=== PATIENT | female | born 1965 | race Caucasian/White ===

== ENCOUNTER 2020-03-17 09:16 | Outpatient (CLI) | payer SELFPAY ==
--- NOTE | 2020-03-17 | MR_ITS ---
WS: [id number] MRI BRAIN WITHOUT CONTRAST HISTORY: WEAKNESS, GAIT ABNORMALITY , CONFUSION COMPARISON: 09/26/2010 TECHNIQUE: Diffusion imaging, multiplanar T1, T2 and FLAIR imaging obtained. No evidence for acute infarct or hemorrhage. Lewis-white matter differentiation is normal. There is a remote infarct with gliosis centered in the posterior LEFT lopez radiata involving the fr ontoparietal junction. Not significantly changed since 2009. There is a new focal area of minimal milka rovascular ischemic change in the RIGHT centrum semiovale ovale. Very mild cerebral atrophy. Atrophy is most significant around the frontal lobes and similar to 2013. No prior hemorrhage. Ventricles and extra-axial spaces are normal. No inferior displacement of cerebellar tonsils. The sella turcica and pituitary gland are unremarkabl e. Posterior fossa is also unremarkable. Dural venous sinuses and [place] demonstrate no abnormality on this unenhanced studies. Paranasal sinuses: Severe diffuse sinus disease. There is a mixture of T2 and T1 signal abnormalities within the sinuses on the T2 sequences. Variable signal intensity especially within the maxillary si nuses. No expansion of the sinus cavities. Mastoid air cells: Normal. Calvarium and scalp: Intact. MR/MR head wo con* [id number] IMPRESSION: 1. No acute infarct or mass. 2. 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 3. Severe diffuse pansinusitis. New since the prior study from 2009.
== END 2020-03-17 09:17 | disposition home or self-care (01) ==
LOC: RADSHAW 09:20
PROVIDERS: PCP Nurse Practitioner Family; Visit Provider Nurse Practitioner Family
DX: R53.1 Weakness (principal); R26.9 Unspecified abnormalities of gait and mobility; R41.0 Disorientation, unspecified; J32.4 Chronic pansinusitis
CPT/HCPCS: 70551

== ENCOUNTER 2020-03-30 13:30 | Outpatient (RCR) | payer SELFPAY | END 2020-04-18 23:59 | disposition home or self-care (01) | LOC: SPT 13:30 | PROVIDERS: PCP Nurse Practitioner Family; Visit Provider Internal Medicine | DX: R53.1 Weakness (principal); R26.9 Unspecified abnormalities of gait and mobility; Z86.79 Personal history of other diseases of the circulatory system | CPT/HCPCS: 97110; 97112; 97116; 97161 ==

== ENCOUNTER → 2020-04-17 11:29 | Outpatient (BNVA) | payer SELFPAY | PROVIDERS: PCP Nurse Practitioner Family; Referring Provider Nurse Practitioner Family; Visit Provider Specialist | DX: G30.9 Alzheimer's disease, unspecified (principal); F02.80 Dementia in other diseases classified elsewhere, unspecified severity, without behavioral disturbance, psychotic disturbance, mood disturbance, and anxiety; I77.3 Arterial fibromuscular dysplasia; R53.1 Weakness | CPT/HCPCS: 96116; 99204 ==

== ENCOUNTER 2020-04-19 06:00 | Outpatient (RCR) | payer SELFPAY | END 2020-05-19 23:59 | disposition home or self-care (01) | LOC: SPT 06:00 | PROVIDERS: PCP Nurse Practitioner Family; Visit Provider Internal Medicine | DX: R53.1 Weakness (principal); R26.9 Unspecified abnormalities of gait and mobility; Z86.79 Personal history of other diseases of the circulatory system | CPT/HCPCS: 97110; 97112; 97116 ==

== ENCOUNTER 2020-04-24 08:22 | Outpatient (CLI) | payer SELFPAY ==
--- NOTE | 2020-04-24 08:38 | CT_ITS ---
WS: [id number] CT ANGIOGRAM CEREBRAL AND CAROTID ARTERIES CT BRAIN, WITH AND WITHOUT CONTRAST HISTORY: Multiple cerebral aneurysms TECHNIQUE: CT the brain performed first with and without contrast. CT angiogram is performed of the c arotid and cerebral arteries. During arterial injection imaging is obtained from the skull vertex to the aortic arch in 1.25 mm imaging. Coronal and sagittal reformats are submitted. Additional multi pl kaur reformats of the carotid and cerebral arteries are submitted, MIP imaging also reviewed. NASCET criteria utilized. All CT scans at [facility] use at least one of these dose optimization techniques: automated exposure control; mA and/or kV adjustment per patient size (includes targeted exams where dose is matched to clinical indication); or iterative reconstruction. CONTRAST: Omnipaque 350; 95 mL IV. DLP: 2285.66 mGy.cm COMPARISON: 04/11/2014, 07/14/2013, 03/17/2020 and 09/26/2010 No acute intracranial hemorrhage. Mild to moderate cerebral atrophy, greatest involving the frontal a nd temporal lobes. Remote lacunar infarct external capsule and insular ribbon on the RIGHT and LEFT c entrum semiovale ovale. No mass effect or hemorrhage. Ventricles are normal size. On the postcontrast images there are no enhancing masses. Carotid Angiogram: Right carotid: Common carotid artery: Arises normally from the innominate artery. No significant plaque or stenosis. Internal carotid artery: No plaque or stenosis. External carotid artery: Patent. Left carotid: Common carotid artery: Arises normally from the aorta. No significant plaque or stenosis. Internal carotid artery: No plaque or stenosis. External carotid artery: Patent. Right vertebral artery: Unremarkable. Left vertebral artery: Unremarkable. Arises normally from the subclavian artery. Subclavian arteries: No stenosis or significant abnormality. Upper thorax: Normal. Thyroid gland: 13 mm mixed nodule inferior LEFT thyroid. Osseous structures: Unremarkable. CEREBRAL ANGIOGRAM: Intracranial vertebral arteries: Normal with no significant atherosclerosis. Basilar artery: No significant stenosis or occlusion. No aneurysm. Intracranial Internal carotid arteries: There is a slightly beaded appearance of the intracranial car otid arteries which may represent fibromuscular dysplasia. Again noted are the distal, intracranial L EFT carotid artery saccular aneurysms. Most proximal aneurysm measures 5 mm and extends medially. Jus t distally there is an additional saccular type aneurysm extending medially by 7 mm. These are stable in size since 2009. No new aneurysms or progression. Mild atherosclerosis of the intracranial caroti d arteries. Middle cerebral arteries: Slightly beaded appearance of the middle cerebral arteries. No aneurysms. Anterior cerebral arteries and ACOM: Normal. Posterior cerebral arteries and PCOM's: Normal. There is a filling defect with a large, dominant RIGHT sigmoid sinus. Partial thrombosis suspected. M ay also be due to slow flow in the large sigmoid sinus. Mastoid air cells: Normal. Paranasal sinuses: Mucoperiosteal thickening in the maxillary, ethmoid, sphenoid and frontal sinuses. There is significant opacification of all sinus cavities. Significant progression since 07/14/2013. Calvarium: Normal. Cervical chain lymph nodes are numerous and top normal size. The largest on the RIGHT at the jugulodi gastric region is 9.7 mm in diameter with a normal fatty hilum. CT/CT angio headneck* [id number] IMPRESSION: 1. No significant extracranial carotid artery stenosis. 2. 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 3. 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 No interval change . 4. Diffuse pansinusitis with significant progression since 2012. Described on a prior MRI of 03/17/2020 5. Filling defect in the RIGHT sigmoid sinus. Partial venous thrombosis or stalin ling defect due to incomplete filling and slow flow.
--- NOTE | 2020-04-24 08:39 | USCV_ITS ---
Minoo Latham Age: 54 Gender: F : 1965 Exam Date: 04/24/2020 09:37 Ordering Phys: Sharri Beck MD Technologist: Susan Buchanan [place] [facility] [place]ication: cva Risk Factors: Previous Vascular Surgery: Right Brachial BP: / Left Brachial BP: / Right Left Velocity (cm/s) Spectral Plaque Velocity (cm/s) Spectral Plaque Syst/Diast Broadening Syst/Diast Broadening 72.80/ 24.30 Prox CCA 65.10 / 23.20 71.70/ 24.30 Mid CCA 72.80 / 29.80 48.50/ 16.50 Distal CCA 71.70 / 26.50 55.20/ 33.30 Prox ICA 27.70 / 6.30 78.00/ 38.50 Mid ICA 58.30 / 25.10 80.60/ 42.50 Distal ICA 45.60 / 26.00 69.20 ECA 67.50 1.12 ICA/CCA 0.80 Antegrade Vertebral Antegrade 37.40/ 14.40 cm/s 39.90/ 16.40 cm/s Tri Subclavian Tri 71.70 90.60 FINDINGS Comparison:. 07/14/13. No significant elevation of systolic or diastolic velocities. Minimal bilateral, intimal thickening with no elevation of velocity. Bilateral antegrade vertebral arteries. CONCLUSIONS No interval change in stenosis since prior exam. Bilateral ICA stenosis less than 50%. Dr. Amrita Mitchell DO (Electronically Signed) Final Date: 24 April 2020 10:28 S
== END 2020-04-24 08:23 | disposition home or self-care (01) ==
LOC: RAD 08:22
PROVIDERS: PCP Nurse Practitioner Family; Visit Provider Specialist
DX: I63.9 Cerebral infarction, unspecified (principal); I65.23 Occlusion and stenosis of bilateral carotid arteries; I67.1 Cerebral aneurysm, nonruptured; J32.4 Chronic pansinusitis
CPT/HCPCS: 70496; 70498; 93880; Q9967

== ENCOUNTER 2020-05-20 06:00 | Outpatient (RCR) | payer SELFPAY | END 2020-06-13 23:00 | disposition home or self-care (01) | LOC: SPT 06:00 | PROVIDERS: PCP Nurse Practitioner Family; Visit Provider Internal Medicine | DX: I69.959 Hemiplegia and hemiparesis following unspecified cerebrovascular disease affecting unspecified side (principal); R26.9 Unspecified abnormalities of gait and mobility | CPT/HCPCS: 97110; 97112; 97116 ==

== ENCOUNTER 2021-03-05 09:36 | Outpatient (CLI) | payer SELFPAY ==
--- NOTE | 2021-03-05 09:40 | MM_ITS ---
WS: [id number] BILATERAL SCREENING DIGITAL MAMMOGRAM WITH CAD HISTORY: SCREENING COMPARISON: 03/31/2019 Bilateral CC and MLO views submitted. Computer aided detection analyzed. Breast composition: There are scattered areas of fibroglandular density. No suspicious masses, microc alcifications or architectural distortion. Stable calcifications and LEFT breast nodules. MM/[place] [id number] IMPRESSION: BI-RADS: 2-Benign FOLLOW UP: 1 Year Follow-up
== END 2021-03-05 09:37 | disposition home or self-care (01) ==
LOC: RADSHAW 09:40
PROVIDERS: PCP Nurse Practitioner Family; Visit Provider Nurse Practitioner Family
DX: Z12.31 Encounter for screening mammogram for malignant neoplasm of breast (principal)
CPT/HCPCS: 77067

== ENCOUNTER 2022-12-12 13:09 | Outpatient (CLI) | payer OTHER, SELFPAY ==
--- NOTE | 2022-12-12 13:15 | MM_ITS ---
WS: [id number] BILATERAL 2D DIGITAL SCREENING MAMMOGRAPHY WITH CAD CLINICAL INFORMATION: SCREENING HISTORY: Screening mammogram. No current complaints. COMPARISON: 2020 TECHNIQUE: Bilateral CC and MLO views. FINDINGS: Patient returned for repeat mammogram after initial screening mammogram demonstrated increa sed new skin calcifications bilaterally. Scattered fibroglandular densities bilaterally. Stable intramammary lymph node upper outer LEFT breas t. Stable tiny punctate calcifications. New progressed skin calcifications are seen today with associ ated markers. Diffuse new punctate calcifications bilaterally in the inferior medial breasts mostly r esolved with repeat imaging and cleaning of the breasts. No new suspicious calcifications. MM/[id number] IMPRESSION: BI-RADS: 2-Benign FOLLOW UP: 1 Year Follow-up Recommend return to annual screening mammography.
== END 2022-12-12 13:10 | disposition home or self-care (01) ==
PROVIDERS: PCP Nurse Practitioner Family; Visit Provider Family Medicine
DX: Z12.31 Encounter for screening mammogram for malignant neoplasm of breast (principal)
CPT/HCPCS: 77063; 77067

== ENCOUNTER 2023-06-03 13:20 | Outpatient (CLI) | payer OTHER, SELFPAY ==
--- NOTE | 2023-06-03 13:30 | USCV_ITS ---
Latham Minoo Age: 57 Gender: F : 1965 Exam Date: 06/03/2023 13:44 Ordering Phys: Rosio Pollock MD ([email or web address]) Technologist: KATYA [place] [facility] [place]: Stenosis Risk Factors: Previous Vascular Surgery: Right Brachial BP: / Left Brachial BP: / Right Left Velocity (cm/s) Spectral Plaque Velocity (cm/s) Spectral Plaque Syst/Diast Broadening Syst/Diast Broadening 87.00/ 20.20 Prox CCA 89.00 / 17.60 71.90/ 17.20 Mid CCA 96.90 / 24.70 60.40/ 16.50 Distal CCA 88.10 / 24.70 39.70/ 17.70 Prox ICA 52.60 / 19.40 56.10/ 21.70 Mid ICA 75.80 / 33.20 72.30/ 29.60 Distal ICA 73.30 / 33.80 76.10 ECA 70.80 0.83 ICA/CCA 0.78 Antegrade Vertebral Antegrade 48.80/ 19.00 cm/s 34.20/ 14.50 cm/s Tri Subclavian Tri 72.80 100.3 0 FINDINGS Comparison:. 04/24/20. No significant elevation of systolic or diastolic velocities. Waveforms are normal. Minimal carotid atherosclerosis. Antegrade vertebral arteries. CONCLUSIONS No interval change in stenosis since prior exam. Bilateral ICA stenosis less than 50%. Dr. Amrita Mitchell DO (Electronically Signed) Final Date: 03 June 2023 15:03 S
== END 2023-06-03 13:21 | disposition home or self-care (01) ==
PROVIDERS: PCP Family Medicine; Visit Provider Internal Medicine Cardiovascular Disease
DX: I63.9 Cerebral infarction, unspecified (principal); I65.23 Occlusion and stenosis of bilateral carotid arteries
CPT/HCPCS: 93880

== ENCOUNTER 2024-03-02 08:49 | Outpatient (CLI) | payer OTHER, SELFPAY ==
--- NOTE | 2024-03-02 08:56 | MM_ITS ---
WS: [id number] BILATERAL SCREENING DIGITAL TOMOSYNTHESIS MAMMOGRAM WITH CAD HISTORY: SCREENING COMPARISON: 12/18/2022, 12/12/2022 and 03/05/2021 Bilateral CC and MLO views with tomosynthesis and synthetic mammography submitted. Computer aided det ection analyzed. Breast composition: There are scattered areas of fibroglandular density. No suspicious masses, microc alcifications or architectural distortion. Numerous calcifications throughout each breast. These are seen predominantly skin calcifications which are increasing over time. Additional lymph nodes in the LEFT breast. MM/[place] [id number] IMPRESSION: BI-RADS: 2-Benign FOLLOW UP: 1 Year Follow-up
== END 2024-03-02 08:50 | disposition home or self-care (01) ==
LOC: RAD 08:49
PROVIDERS: PCP Family Medicine; Visit Provider Family Medicine
DX: Z12.31 Encounter for screening mammogram for malignant neoplasm of breast (principal)
CPT/HCPCS: 77063; 77067

== ENCOUNTER 2025-10-03 13:07 | Outpatient (CLI) | payer OTHER, SELFPAY ==
--- NOTE | 2025-10-03 13:11 | MM_ITS ---
WS: [id number] BILATERAL 3D TOMOSYNTHESIS DIGITAL SCREENING MAMMOGRAPHY WITH CAD CLINICAL INFORMATION: ANNUAL SCREEN HISTORY: Screening mammogram. No current complaints. COMPARISON: 2023 TECHNIQUE: Bilateral CC and MLO views. FINDINGS: Scattered fibroglandular densities bilaterally. No suspicious focal mass, asymmetry, calcifications, or architectural distortion. No evidence of malignancy. Stable LEFT intramammary lymph nodes. Diffuse bilateral tiny punctate foci from skin cream mainly along the inframammary folds. MM/MM [facility] tomosynthesis [id number] IMPRESSION: DENSITY: There are scattered areas of fibroglandular density. BI-RADS: 2 - Benign. FOLLOW UP: 1 Year Follow-up Recommend return to annual screening mammography.
== END 2025-10-03 13:08 | disposition home or self-care (01) ==
PROVIDERS: PCP Family Medicine; Visit Provider Family Medicine
DX: Z12.31 Encounter for screening mammogram for malignant neoplasm of breast (principal); R92.323 Mammographic fibroglandular density, bilateral breasts; R92.8 Other abnormal and inconclusive findings on diagnostic imaging of breast
CPT/HCPCS: 77063; 77067